=== PATIENT | male | born 1965 | race African-American/Black ===

== ENCOUNTER 2020-12-08 12:09 | Emergency (ER) | payer SELFPAY ==
[~2020-12-08] VITALS: Ht 190.5 cm; Wt 85.7 kg
[2020-12-08 13:27] LABS: Basophils # (auto) 0 10 ^3/uL (0-0.2); Basophils % (auto) 0.9 % (0.0-2.0); Eosinophils # (auto) 0.1 10 ^3/uL (0-0.8); Eosinophils % (auto) 2.2 % (0.0-7.0); Hematocrit 45.1 % (41.0-53.0); Hemoglobin 14.8 g/dL (13.5-17.5); Lymphocytes # (auto) 1.4 10 ^3/uL (0.4-5.4); Mean Corpuscular Hemoglobin 28.3 pg (28.0-32.0); Mean Corpuscular Hgb Conc. 32.8 g/dL (32.0-36.0); Mean Corpuscular Volume 86.2 fL (80.0-100.0); Monocytes # (auto) 0.3 10 ^3/uL (0-1.3); Monocytes % (auto) 8.5 % (0.0-12.0); Neutrophils # (auto) 2.1 10 ^3/uL (1.6-8.6); Neutrophils % (auto) 52.4 % (37.0-80.0); Nucleated Red Blood Cells % 0.3 %; Platelet Count (auto) 156 10^3/uL (140-450); Red Blood Cells 5.24 10^6/uL (4.5-5.90); Red Cell Distribution Width 12.7 % (11.8-14.3)
[2020-12-08 13:33] LABS: INR 1.07 (0.9-1.15); Partial Thromboplastin Time 26.6 sec (23.0-31.2)
[2020-12-08 14:00] VITALS: BP 114/82
== END 2020-12-08 14:51 | disposition home or self-care (01) ==
LOC: ER 12:09
DX: K64.8 Other hemorrhoids (principal); Z88.0 Allergy status to penicillin
CPT/HCPCS: 36415; 74176; 85025; 85610; 85730